=== PATIENT | female | born 1955 | race Caucasian/White ===

== ENCOUNTER → 2020-08-06 | Outpatient (CLI) | payer BC, MEDICARE ==
[2020-08-10 17:12] LABS: HPV 16 Negative (Negative); HPV 18 Negative (Negative); HPV OTHER HR TYPES Negative (Negative)
== END | disposition home or self-care (01) ==
LOC: LAB UCHC 12:40 → LAB SHORT 12:40
PROVIDERS: Family Medicine
DX: Z12.4 Encounter for screening for malignant neoplasm of cervix (principal); R39.9 Unspecified symptoms and signs involving the genitourinary system
CPT/HCPCS: 87086; 87624; G0123

== ENCOUNTER → 2021-03-16 | Outpatient (CLI) | payer BC, MEDICARE | LOC: LAB SHORT 12:00 → LAB 12:00 | DX: N39.0 Urinary tract infection, site not specified (principal) | CPT/HCPCS: 87086 ==

== ENCOUNTER → 2021-08-22 | Outpatient (CLI) | payer BC, MEDICARE | END | disposition home or self-care (01) | LOC: LAB SHORT 09:00 | DX: R73.01 Impaired fasting glucose (principal) | CPT/HCPCS: 83036 ==

== ENCOUNTER 2024-08-15 08:13 | Day surgery (SDC) | payer OTHER, MEDICARE ==
[~2024-08-15] VITALS: Ht 154.9 cm; Wt 59.9 kg
[~2024-08-15 08:13] MED LIST: COVARYX H.S. T1 EACH; DECARA1250 MC1; Macrobid 100 M100 MG PO; PROG100 PO; Pyridium200 MG PO
[2024-08-15] MEDS ORDERED: Lactated Ringer's 1,000 ML IV ONE ×3 (08:24→10:16)
[2024-08-15] MEDS ORDERED: propofoL 50 ML IV ONE ×2 (08:24→10:38)
[2024-08-15] MEDS ORDERED: [UNRECOGNIZED DRUG - OTHER] (09:35)
[2024-08-15 10:58] VITALS: BP 113/71
== END 2024-08-15 11:00 | disposition home or self-care (01) ==
LOC: ORSCSDS 08:13
PROVIDERS: Internal Medicine Gastroenterology
PROC: 0DBL8ZX Excision of Transverse Colon, Via Natural or Artificial Opening Endoscopic, Diagnostic (ICD-10-PCS; principal; 2024-08-15 09:30)
PROC: 0DBN8ZX Excision of Sigmoid Colon, Via Natural or Artificial Opening Endoscopic, Diagnostic (ICD-10-PCS; principal; 2024-08-15 09:30)
PROC: 0DBM8ZX Excision of Descending Colon, Via Natural or Artificial Opening Endoscopic, Diagnostic (ICD-10-PCS; principal; 2024-08-15 09:30)
DX: Z12.11 Encounter for screening for malignant neoplasm of colon (principal); Z86.0100 Personal history of colon polyps, unspecified; D12.3 Benign neoplasm of transverse colon; K63.5 Polyp of colon; K64.8 Other hemorrhoids; K64.4 Residual hemorrhoidal skin tags; K57.30 Diverticulosis of large intestine without perforation or abscess without bleeding; F17.210 Nicotine dependence, cigarettes, uncomplicated; Z79.899 Other long term (current) drug therapy
CPT/HCPCS: 88305; J2704; J7120